=== PATIENT | female | born 1995 | race Caucasian/White ===

== ENCOUNTER 2017-02-28 06:25 | Emergency (ER) | payer OTHER ==
--- NOTE | 2017-02-28 07:06 | ERNOTE ---
<RobinsonyannaNelia harris - Last Filed: 02/28/17 07:10> Medical Problem HPI - General Chief Complaint: General Assessment Time Seen by Provider: 02/28/17 06:46 Source: patient Exam Limitations: no limitations - Immun/Allergies/Home Medications Immunizations: IMMUNIZATION HX Immunizations Up to Date No History of Influenza Vaccine More Information Required Hx Pneumococcal Vaccination More Information Required Allergies/Adverse Reactions: Allergies No Known Allergies Allergy (Unverified 02/28/17 06:42) Home Medications: HOME MEDICATIONS Mupirocin [Bactroban] 1 appl TP BID #22 gm 02/28/17 [Last Taken Unknown] - History of Present History Narrative: Here for having used meth at 0300 today. Pt states that she ate a quarter of a gram today. She is here for open lesions on left inner arm for one week. denies any fevers or chills. She is under the influence now. Review of Systems - Review of Systems Constitutional: Present: no symptoms reported EYE: Present: no symptoms reported ENT: Present: no symptoms reported Respiratory: Present: no symptoms reported Cardiology: Present: no symptoms reported Gastrointestinal/Abdominal: Present: no symptoms reported Genitourinary: Present: no symptoms reported Musculoskeletal: Present: no symptoms reported Neurological: Present: other - two open lesions on left forearm - Patient's Past Medical History Patient History - Medical: No pertinent hx Patient History - Cardiac/Respiratory: No pertinent hx Patient History - Cancer: No Hx of Cancer Patient History - Surgical Procedures: No surgical history Patient History - Other: None - Social History Psych History: No pertinent hx Smoking Status: Current every day smoker Have you smoked in the past 12 months: Yes Drug Use: meth - Immunizations Immunizations Up to Date: No Hx Pneumococcal Vaccination: More Information Required to Determine History of Influenza Vaccine: More Information Required to Determine Physical Exam - Physical Exam General Appearance: Present: wd/wn, other - pt is slurring speech and somnolent but GCS is 15. Head Exam: Present: normal inspection, no evidence of injury Eye Exam: Normal inspection: bilateral - both pupils are dilated Ears, Nose, Throat: Present: normal ENT inspection Neck: Present: normal inspection Respiratory: Present: no respiratory distress, normal breath sounds, no accessory muscle use, chest nontender, lungs clear Cardiovascular/Chest: Present: regular rate, rhythm, no murmur, normal peripheral pulses Gastrointestinal/Abdominal: Present: normal bowel sounds, nontender, nondistended, soft Back Exam: Present: normal inspection Extremity Exam: Present: normal except - - There is an open wound on left AC area and there is another open area where patient has shot up on the volar aspect of the left forearm. Pt has track hilliard all over her forearms., normal range of motion ED Progress - Vital Signs Patient's Vital Signs:: I have reviewed the patient's vital signs. Vital Signs: Vital Signs 02/28/17 06:32 Temperature 36.3 C L Pulse Rate 72 Respiratory 16 Rate Blood Pressure 131/78 O2 Sat by Pulse 100 Oximetry - Progress/Reassessment Chief Complaint: General Assessment - Transfer of Care Physician Sign Out: [place] Receiving Physician: Adelso Dutta Pending Results: Labs Departure - Departure Clinical Impression: Wound, open, arm, forearm Qualifiers: Encounter type: initial encounter Laterality: left Qualified Code(s): S51.802A - Unspecified open wound of left forearm, initial encounter Disposition: [facility] Condition: Fair Instructions: How to Change Your Dressing, [id number] Additional Instructions: Gentle soap like Dove twice daily, bactroban and bandaid twice daily, may take up to a month to heal. Prescriptions: Mupirocin [Bactroban] 1 appl TP BID #22 gm <Adelso Dutta - Last Filed: 02/28/17 08:52> Medical Problem HPI - Narrative Date of Service: 02/28/17 - Immun/Allergies/Home Medications Immunizations: IMMUNIZATION HX Immunizations Up to Date No History of Influenza Vaccine More Information Required Hx Pneumococcal Vaccination More Information Required ED Progress - Results and Orders Patient's Lab Results:: I have reviewed the patient's lab results. - Vital Signs Vital Signs: Vital Signs 02/28/17 06:32 Temperature 36.3 C L Pulse Rate 72 Respiratory 16 Rate Blood Pressure 131/78 O2 Sat by Pulse 100 Oximetry - Progress/Reassessment Progress:: Unchanged Progress Note-Subjective: 02/28/17 08:48 Doing well. Labs reviewed> patient counselled. - Transfer of Care Expected Disposition: Discharge
[2017-02-28 07:14] LABS: Hematocrit 34.3 % (37.0-47.0); Hemoglobin 10.5 gm/dL (12.5-16.0); Mean Cell Volume 77.1 fl (78-100); Mean Corpuscular Hemoglobin 23.6 pg (27-31); Mean Corpuscular Hgb Conc 30.6 g/dl (32-36); Mean Platelet Volume 9.4 fl (6.0-9.5); Neutrophil # 2.3 K/mm3 (1.3-6.0); Platelet Count 305 K/mm3 (150-450); Red Blood Count 4.45 M/mm3 (4.2-5.4); Red Cell Distribution Width 23.9 % (11.5-14.0); White Blood Count 4.8 K/mm3 (4.0-10.5)
[2017-02-28 07:26] LABS: Albumin * 4.2 gm/dl (3.4-5.0); Anion Gap 13.6 mmol/L (6.8-13.8); BUN/Creatinine Ratio 5.7 (9.0-21.6); Calcium * 8.9 mg/dL (7.9-10.9); Carbon Dioxide 26.9 mmol/L (24-32.6); Potassium 3.5 mmol/L (3.4-4.6); Total Protein 7.9 gm/dL (6.2-8.2)
[2017-02-28 07:27] LABS: Bilirubin, Total 0.6 mg/dL (0.0-1.1); Ca. Corrected For Albumin 8.4 mg/dL (8.4-10.2)
[2017-02-28 07:51] LABS: Urine Bilirubin Negative (NEGATIVE); Urine Blood 250 /ul (NEGATIVE); Urine Ketone Negative (NEGATIVE); Urine Nitrite Negative (NEGATIVE); Urine Protein 15 mg/dL (NEGATIVE); Urine Urobilinogen Normal (NORMAL)
[2017-02-28 08:04] LABS: Cocaine Ur Negative (NEGATIVE); Urine Barbiturate Negative (NEGATIVE); Urine Opiates Negative (NEGATIVE); Urine PCP Negative (NEGATIVE)
[2017-02-28 08:05] LABS: Urine Appearance Cloudy; Urine Color Yellow; Urine RBC 25-50 /hpf (0-5); Urine WBC 25-50 /hpf (0-5)
[2017-02-28 08:06] LABS: Urine Bacteria 3+; Urine Trichomonas Moderate - 2+
[2017-02-28 08:08] LABS: Urine Benzodiazepines Positive (NEGATIVE); Urine THC Positive (NEGATIVE)
[2017-02-28] MEDS ORDERED: MUPIROCIN 22 APPL TUBE TP ONE ×2 (08:49→08:59)
[2017-02-28 09:08] VITALS: BP 128/74
== END 2017-02-28 09:08 ==
LOC: EDBD → ER 06:25
DX: S51.802A Unspecified open wound of left forearm, initial encounter (principal); F17.200 Nicotine dependence, unspecified, uncomplicated

== ENCOUNTER 2017-03-30 16:17 | Emergency (ER) | payer SELFPAY ==
[2017-03-30 16:25] VITALS: BP 123/78
[2017-03-30] MEDS ORDERED: AZITHROMYCIN 250 MG TABLET PO ONE (16:48)
[2017-03-30] MEDS ORDERED: AZITHROMYCIN 250 MG TABLET ONE (16:53)
--- NOTE | 2017-03-30 16:56 | ERNOTE ---
ER Female HPI Date of Service: 03/30/17 Stated Complaint: POSSIBLE STD Presenting Symptoms: other - STD exposure Time Seen by Provider: 03/30/17 16:40 Source: patient, RN notes reviewed Exam Limitations: no limitations Immunizations: IMMUNIZATION HX Immunizations Up to Date Yes History of Influenza Vaccine Yes Hx Pneumococcal Vaccination Yes Allergies/Adverse Reactions: Allergies No Known Allergies Allergy (Verified 03/30/17 16:25) Home Medications: HOME MEDICATIONS NK [No Home Medication] 03/30/17 [Last Taken Unknown] Pain Score #1 Pain Score: 0 - History of Present Illness Narrative: 21 y/o female ambulatory to the ED after being notified by a sexual contact that he has chlamydia. She is asymptomatic. She denies having any other sex partners since the possible exposure. Associated Symptoms: Absent: fever/chills, nausea, vomiting, abdominal pain, dysuria, urinary frequency, low back pain Prior Treatment: Absent: recently seen, currently on antibiotics Review of Systems - Review of Systems Constitutional: Absent: fever, chills, fatigue, malaise EYE: Present: no symptoms reported ENT: Present: no symptoms reported Respiratory: Absent: shortness of breath, cough Cardiology: Absent: chest pain, syncope Gastrointestinal/Abdominal: Absent: nausea, abdominal pain Genitourinary: Absent: frequency, dysuria, discharge Musculoskeletal: Absent: back pain, muscle pain Skin: Absent: rash, lesions Neurological: Absent: headache, dizziness/light-headedness Endocrine: Present: no symptoms reported Hematologic/Lymphatic: Present: no symptoms reported Psych: Present: no symptoms reported - Patient's Past Medical History Patient History - Medical: No pertinent hx Patient History - Cardiac/Respiratory: No pertinent hx Patient History - Cancer: No Hx of Cancer Patient History - Surgical Procedures: No surgical history Patient History - Other: None LMP (females 10-50): now - Social History Living Situations: home Psych History: No pertinent hx Smoking Status: Current every day smoker Alcohol Use: occasionally Drug Use: marijuana, meth - Immunizations Immunizations Up to Date: Yes Hx Pneumococcal Vaccination: Yes History of Influenza Vaccine: Yes Physical Exam - Physical Exam General Appearance: Present: wd/wn, alert, no apparent distress Respiratory: Present: no respiratory distress, normal breath sounds, no accessory muscle use, lungs clear Cardiovascular/Chest: Present: regular rate, rhythm, no murmur Extremity Exam: Present: normal inspection, normal range of motion, no edema Neurological Exam: Present: alert, oriented, normal mood/affect, no motor/ sensory deficits Skin Exam: Present: normal color, warm/dry ED Progress - Vital Signs Patient's Vital Signs:: I have reviewed the patient's vital signs. Vital Signs: Vital Signs 03/30/17 16:20 Temperature 37.0 C Pulse Rate 98 Respiratory 16 Rate Blood Pressure 123/78 O2 Sat by Pulse 99 Oximetry - Progress/Reassessment Chief Complaint: Genitourinary Problem Progress:: Unchanged Plan - Plan Plan: Treated empircially with Rocephin and azithromycin, chlamydia and GC pending Departure Clinical Impression: Potential exposure to STD - Departure Disposition: Home Follow Up Needed Condition: Stable Instructions: Sexually Transmitted Disease, [id number] Additional Instructions: Abstain from intercourse for 7 days Do not have unprotected sex
== END 2017-03-30 17:08 | disposition home or self-care (01) ==
LOC: ER 16:17
DX: Z20.2 Contact with and (suspected) exposure to infections with a predominantly sexual mode of transmission (principal); F17.200 Nicotine dependence, unspecified, uncomplicated

== ENCOUNTER 2017-04-20 14:07 | Emergency (ER) | payer SELFPAY ==
[2017-04-20 14:16] VITALS: BP 144/76
--- NOTE | 2017-04-20 14:24 | ERNOTE ---
ENT HPI Presenting Symptoms: other - sore throat Time Seen by Provider: 04/20/17 14:15 Source: patient Exam Limitations: no limitations - Immun/Allergies/Home Medications Immunizations: IMMUNIZATION HX Immunizations Up to Date Yes History of Influenza Vaccine No Hx Pneumococcal Vaccination No Allergies/Adverse Reactions: Allergies Allergy/AdvReac Type Severity Reaction Status Date / Time No Known Allergies Allergy Verified 04/20/17 14:16 Home Medications: HOME MEDICATIONS Amox Tr/Potassium Clavulanate [Augmentin 875-125 Tablet] 875 mg PO Q12H #20 tab 04/20/17 [Last Taken Unknown] - History of Present Illness Narrative: She presents with a sore throat over the past several days. She rates the pain as moderate in intensity. Severity: Present: moderate ENT Location: Present: throat Prearrival Treatment: Present: no prearrival treatment Modifying Factors - Improves: Reports: activity Associated Symptoms - ENT: Reports: denies symptoms Review of Systems - Review of Systems Constitutional: Present: See HPI EYE: Present: no symptoms reported ENT: Present: sore throat Respiratory: Present: no symptoms reported Cardiology: Present: no symptoms reported Gastrointestinal/Abdominal: Present: no symptoms reported Genitourinary: Present: no symptoms reported Musculoskeletal: Present: no symptoms reported Skin: Present: no symptoms reported Neurological: Present: no symptoms reported Endocrine: Present: no symptoms reported Hematologic/Lymphatic: Present: swollen glands - anterior cervical Psych: Present: no symptoms reported - Patient's Past Medical History Patient History - Medical: No pertinent hx Patient History - Cardiac/Respiratory: No pertinent hx Patient History - Cancer: No Hx of Cancer Patient History - Surgical Procedures: No surgical history Patient History - Other: None LMP (Calendar): 04/06/17 - Social History Living Situations: home Abuse History: 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 Psych History: No pertinent hx Smoking Status: Current every day smoker Have you smoked in the past 12 months: Yes Alcohol Use: occasionally Drug Use: marijuana, meth - Immunizations Immunizations Up to Date: Yes Hx Pneumococcal Vaccination: No History of Influenza Vaccine: No Physical Exam - Physical Exam General Appearance: Present: wd/wn, alert, mild distress Eye Exam: Normal inspection: bilateral, PERRL: bilateral Ears, Nose, Throat: Present: pharyngeal erythema, tonsillar exudate, tonsillar swelling Neck: Present: lymphadenopathy (R), lymphadenopathy (L) Respiratory: Present: no respiratory distress, normal breath sounds, no accessory muscle use, chest nontender, lungs clear Cardiovascular/Chest: Present: regular rate, rhythm, no murmur, normal peripheral pulses Gastrointestinal/Abdominal: Present: normal bowel sounds, nontender, nondistended, soft, no organomegaly Rectal Exam: Present: deferred Back Exam: Present: normal inspection, normal range of motion Extremity Exam: Present: normal inspection, non-tender, no edema, normal range of motion Neurological Exam: Present: alert, oriented, normal mood/affect Skin Exam: Present: normal color, warm/dry Lymphatic Exam: Present: no adenopathy ED Progress - Results and Orders Patient's Lab Results:: I have reviewed the patient's lab results. - Vital Signs Patient's Vital Signs:: I have reviewed the patient's vital signs. Vital Signs: Vital Signs 04/20/17 14:12 Temperature 37.1 C Pulse Rate 136 H Respiratory 16 Rate Blood Pressure 144/76 O2 Sat by Pulse 98 Oximetry - Progress/Reassessment Chief Complaint: Sore Throat Plan - Plan Plan: All the patient does not appear to have strep, at least on the rapid strep, she certainly has tonsillitis and pharyngitis. Patient will be started on Augmentin 875 and she will follow-up with her family physician as needed. Departure Clinical Impression: Tonsillitis with exudate Pharyngitis Qualifiers: Pharyngitis/tonsillitis etiology: unspecified etiology Qualified Code(s): J02.9 - Acute pharyngitis, unspecified - Departure Disposition: Home self-care Condition: Good Instructions: Tonsillitis, [id number], Pharyngitis, [id number] Prescriptions: Amox Tr/Potassium Clavulanate [Augmentin 875-125 Tablet] 875 mg PO Q12H #20 tab
== END 2017-04-20 14:41 | disposition home or self-care (01) ==
LOC: ER 14:07
DX: J03.90 Acute tonsillitis, unspecified (principal); J02.9 Acute pharyngitis, unspecified; F17.200 Nicotine dependence, unspecified, uncomplicated